=== PATIENT | male | born 1985 | race Caucasian/White ===

== ENCOUNTER 2022-01-10 12:22 | Emergency (ER) | payer MEDICAID ==
[2022-01-10] MEDS ORDERED: Ampicillin/Sulbactam Na 3 GM in Sodium Chloride 0.9% 100 ML IV ONE (12:44)
== END 2022-01-10 13:50 | disposition home or self-care (01) ==
LOC: MW.ED 12:22
DX: K02.9 Dental caries, unspecified (principal); L03.211 Cellulitis of face; Z88.8 Allergy status to other drugs, medicaments and biological substances
CPT/HCPCS: 96365; 99283; J0295